=== PATIENT | female | born 1945 | race Caucasian/White ===

== ENCOUNTER 2020-10-06 14:24 | Observation (INO) ==
[2020-10-06 15:12] LABS: INR 1.1; Mean Platelet Volume 9.6 fL (9.4-12.4); Nucleated Red Blood Cells 0.8 /100 WBC (0); Prothrombin Time 12.4 Seconds (9.4-12.1)
[2020-10-06 15:14] LABS: Activated Partial Thrombo Time 22.9 Seconds (26.0-36.0)
[2020-10-06 15:15] LABS: Basophils # 0.1 K/mcL (0.0-0.2); Basophils % 0.8 %; Eosinophils # 0.2 K/mcL (0.0-0.6); Eosinophils % 2.3 %; Hematocrit 17.4 % (35.3-44.9); Immature Granulocytes % 0.3 % (0-4); Lymphocytes # 2.2 K/mcL (0.6-4.6); Lymphocytes % 29.6 %; Mean Corpuscular Hemoglobin 17.2 pg (28.0-33.3); Mean Corpuscular Volume 63.5 fL (83.0-100.0); Monocytes # 0.7 K/mcL (0.0-1.3); Monocytes % 9.6 %; Neutrophils # 4.3 K/mcL (1.6-8.9); Platelet Count 306 K/mcL (140-400); Red Blood Count 2.74 M/mcL (3.82-4.97); Red Cell Distribution Width 18.6 % (11.5-14.5); Segmented Neutrophils % 57.4 %; White Blood Count 7.5 K/mcL (4.3-11.1)
[2020-10-06 15:30] LABS: Hemoglobin 4.7 g/dL (11.5-15.4)
[2020-10-06] MEDS ORDERED: Isovue-370 500 ML BOTTLE IVP ONE (15:38)
[2020-10-06 15:41] LABS: BUN/Creatinine Ratio 22 (6-26); Blood Urea Nitrogen 19 mg/dL (8-23); Calcium 8.9 mg/dL (8.6-10.3); Carbon Dioxide 21 mEq/L (23-29); Chloride 110 mEq/L (98-107); Glucose 98 mg/dL (70-105); Osmolality,Calculated 296 (280-300); Potassium 3.4 mEq/L (3.5-5.1); Sodium 142 mEq/L (136-145); Troponin I < 0.03 ng/mL (< 0.04); eGFR For African Americans > 60 (> 60); eGFR For Non-African Americans > 60 (> 60)
[2020-10-06 16:30] LABS: Anisocytosis 2+ (Not Present); Hypochromasia Present (Not Present)
[2020-10-06 16:31] LABS: Polychromasia 1+ (Not Present); Tear Drop Cells 1+ (Not Present)
[2020-10-06 16:32] LABS: Helmet Cells Present (Not Present); Platelet Estimate Normal (Normal)
[2020-10-06] MEDS ORDERED: 0.9 % Sodium Chloride 250 ML ONE (16:44)
[2020-10-06] MEDS ORDERED: Ondansetron 4 MG/2 ML VIAL IVP PRN (17:13)
[2020-10-06] MEDS ORDERED: Naloxone 0.4 MG/ML INJ IVP PRN (17:13)
[2020-10-06] MEDS ORDERED: Perflutren Lipid Microsphere 1.3 ML in 0.9 % Sodium Chloride 8.7 ML IVP PRN (17:33)
[2020-10-06 17:38] LABS: Bilirubin,Direct 0.1 mg/dL (0.0-0.2); Bilirubin,Indirect 0.2 mg/dL (0.0-1.0); Bilirubin,Total 0.3 mg/dL (0.3-1.0); Lactate Dehydrogenase 143 Units/L (140-271)
[2020-10-06] MEDS: Pantoprazole 40 MG VIAL IVP SCH (18:30)
[2020-10-07 00:47] LABS: Hematocrit 22.1 % (35.3-44.9)
[2020-10-07 00:49] LABS: Hemoglobin 6.4 g/dL (11.5-15.4)
[2020-10-07 03:35] LABS: INR 1.1; Prothrombin Time 12.4 Seconds (9.4-12.1)
[2020-10-07 03:38] LABS: Activated Partial Thrombo Time 22.7 Seconds (26.0-36.0)
[2020-10-07 03:52] LABS: % Iron Saturation 7 % (15-50); Alanine Aminotransferase 5 Units/L (7-52); Albumin 3.2 g/dL (3.5-5.7); Albumin/Globulin Ratio 1.7 (1.1-2.2); Alkaline Phosphatase 67 Units/L (34-104); Aspartate Amino Transferase 10 Units/L (13-39); BUN/Creatinine Ratio 22 (6-26); Bilirubin,Total 0.5 mg/dL (0.3-1.0); Blood Urea Nitrogen 17 mg/dL (8-23); Calcium 8.3 mg/dL (8.6-10.3); Carbon Dioxide 23 mEq/L (23-29); Chloride 114 mEq/L (98-107); Chol/HDL Ratio 3.6 (0-4.9); Cholesterol 146 mg/dL (< 200); Globulin 1.9 g/dL (2.4-3.5); Glucose 93 mg/dL (70-105); HDL Cholesterol 41 mg/dL (40-59); Iron 27 mcg/dL (50-170); LDL Cholesterol,Calculated 89 mg/dL (< 100); Magnesium 1.9 mg/dL (1.6-2.6); Osmolality,Calculated 293 (280-300); Phosphorous 4.1 mg/dL (2.7-4.5); Potassium 4.3 mEq/L (3.5-5.1); Sodium 141 mEq/L (136-145); Total Protein 5.1 g/dL (6.4-8.9); Transferrin 281 mg/dL (203-362); Triglycerides 79 mg/dL (< 150); eGFR For African Americans > 60 (> 60); eGFR For Non-African Americans > 60 (> 60)
[2020-10-07 04:11] LABS: Ferritin < 8 ng/mL (10-120)
[2020-10-07 04:12] LABS: Folate 6.2 ng/mL (3.0-16.0)
[2020-10-07] MEDS: Pantoprazole 40 MG VIAL IVP SCH ×2 (05:54→17:52)
[2020-10-07 05:55] LABS: Red Cell Distribution Width 23.6 % (11.5-14.5)
[2020-10-07 05:56] LABS: Basophils # 0.1 K/mcL (0.0-0.2); Basophils % 0.9 %; Eosinophils # 0.2 K/mcL (0.0-0.6); Eosinophils % 2.9 %; Hematocrit 23.2 % (35.3-44.9); Hemoglobin 6.8 g/dL (11.5-15.4); Immature Granulocytes % 0.3 % (0-4); Lymphocytes # 2.5 K/mcL (0.6-4.6); Mean Corpuscular HGB Conc 29.3 g/dL (31.6-35.5); Mean Corpuscular Hemoglobin 20.7 pg (28.0-33.3); Mean Corpuscular Volume 70.7 fL (83.0-100.0); Mean Platelet Volume 9.9 fL (9.4-12.4); Monocytes # 0.8 K/mcL (0.0-1.3); Monocytes % 11.9 %; Nucleated Red Blood Cells 0.8 /100 WBC (0); Platelet Count 245 K/mcL (140-400); Red Blood Count 3.28 M/mcL (3.82-4.97); White Blood Count 6.6 K/mcL (4.3-11.1)
[2020-10-07 06:23] LABS: Anisocytosis 3+ (Not Present); Burr Cells 1+ (Not Present); Hypochromasia Present (Not Present); Microcytosis Present (Not Present); Platelet Estimate Normal (Normal); Poikilocytosis 2+ (Not Present); Schistocytes 1+ (Not Present); Target Cells 1+ (Not Present)
[2020-10-07 08:19] LABS: Bilirubin,Urine Negative (Negative); Blood,Urine Negative (Negative); Clarity,Urine Clear (Clear); Color,Urine Light-Yellow (Yellow); Glucose,Urine (UA) Normal (Normal); Ketones,Urine Negative (Negative); Leukocyte Esterase,Urine Negative (Negative); Nitrite,Urine Negative (Negative); PH,Urine 5.5 pH Units (5.0-8.0); Protein,Urine Negative (Neg-Trace); Specific Gravity,Urine > 1.030 (1.010-1.025); Urobilinogen,Urine Normal (Normal)
[2020-10-07] MEDS ORDERED: Cyanocobalamin (B-12) 1,000 MCG/ML VIAL SQ ONE (08:20)
[2020-10-07] MEDS ORDERED: Lidocaine -MPF 2% 5 ML VIAL INFILT ONE (11:01)
[2020-10-07] MEDS ORDERED: Loratadine 10 MG TABLET PO PRN (15:57)
[2020-10-07] MEDS ORDERED: Fluticasone Propionate Nasal 50 MCG/SPRAY BOTTLE NS PRN (15:57)
[2020-10-07] MEDS ORDERED: tiZANidine 4 MG TABLET PO PRN (15:57)
[2020-10-07] MEDS ORDERED: 0.9 % Sodium Chloride 250 ML IVC SCH (16:45)
[2020-10-07] MEDS: Sucralfate 1 GM TABLET PO SCH (17:53)
[2020-10-07] MEDS: Gabapentin 300 MG CAPSULE PO SCH (19:47)
[2020-10-07] MEDS: Acetaminophen 325 MG TABLET PO PRN (19:47)
[2020-10-07] MEDS ORDERED: traZODone 50 MG TABLET PO SCH (21:00)
[2020-10-07] MEDS ORDERED: Magnesium Oxide 400 MG TABLET PO SCH (21:00)
[2020-10-08 02:55] LABS: Basophils # 0.1 K/mcL (0.0-0.2); Basophils % 0.9 %; Eosinophils # 0.3 K/mcL (0.0-0.6); Hematocrit 26.3 % (35.3-44.9); Hemoglobin 7.7 g/dL (11.5-15.4); Immature Granulocytes % 0.3 % (0-4); Lymphocytes % 30.4 %; Mean Corpuscular HGB Conc 29.3 g/dL (31.6-35.5); Mean Corpuscular Hemoglobin 21.2 pg (28.0-33.3); Mean Corpuscular Volume 72.3 fL (83.0-100.0); Mean Platelet Volume 9.7 fL (9.4-12.4); Monocytes % 9.7 %; Nucleated Red Blood Cells 0.3 /100 WBC (0); Platelet Count 220 K/mcL (140-400); Red Blood Count 3.64 M/mcL (3.82-4.97); Red Cell Distribution Width 24.1 % (11.5-14.5); Segmented Neutrophils % 55.7 %; White Blood Count 9.8 K/mcL (4.3-11.1)
[2020-10-08 03:00] LABS: Neutrophils # 5.5 K/mcL (1.6-8.9)
[2020-10-08 03:15] LABS: BUN/Creatinine Ratio 21 (6-26); Blood Urea Nitrogen 17 mg/dL (8-23); Calcium 8.2 mg/dL (8.6-10.3); Carbon Dioxide 20 mEq/L (23-29); Chloride 111 mEq/L (98-107); Glucose 89 mg/dL (70-105); Osmolality,Calculated 287 (280-300); Sodium 138 mEq/L (136-145); eGFR For African Americans > 60 (> 60); eGFR For Non-African Americans > 60 (> 60)
[2020-10-08 03:24] LABS: Anisocytosis 1+ (Not Present); Hypochromasia Present (Not Present); Microcytosis Present (Not Present); Poikilocytosis 2+ (Not Present); Polychromasia 1+ (Not Present)
[2020-10-08] MEDS: Pantoprazole 40 MG VIAL IVP SCH (05:23)
[2020-10-08] MEDS: Acetaminophen 325 MG TABLET PO PRN (07:53)
[2020-10-08] MEDS: Sucralfate 1 GM TABLET PO SCH (07:54)
[2020-10-08] MEDS: Gabapentin 300 MG CAPSULE PO SCH (07:54)
[2020-10-08 09:09] LABS: Hematocrit 28.9 % (35.3-44.9); Hemoglobin 8.3 g/dL (11.5-15.4)
[2020-10-08 11:29] VITALS: BP 119/61
== END 2020-10-08 13:52 | disposition home or self-care (01) | DRG 812 ==
LOC: 2NNU 14:24 → EMEROOARM 14:24 → SUATTDRO 16:58 → 2NNU 17:47 → SUATTDRO 19:57
PROVIDERS: ADMIT Internal Medicine; ATTEND Student in an Organized Health Care Education/Training Program
PROC: ENDOEBX (2020-10-07 10:25)

== ENCOUNTER 2021-09-03 07:41 | Inpatient (IN) ==
[2021-09-03] MEDS ORDERED: Isovue-370 500 ML BOTTLE IVP ONE (07:47)
[2021-09-03 08:00] LABS: Hematocrit 33.6 % (35.3-44.9); Mean Corpuscular HGB Conc 29.8 g/dL (31.6-35.5); Mean Corpuscular Hemoglobin 24.6 pg (28.0-33.3); Mean Corpuscular Volume 82.6 fL (83.0-100.0); Mean Platelet Volume 9.2 fL (9.4-12.4); Platelet Count 239 K/mcL (140-400); Red Blood Count 4.07 M/mcL (3.82-4.97); Red Cell Distribution Width 15.4 % (11.5-14.5); White Blood Count 8.7 K/mcL (4.3-11.1)
[2021-09-03 08:10] LABS: Prothrombin Time 11.2 Seconds (9.4-12.1)
[2021-09-03 08:13] LABS: Activated Partial Thrombo Time 28.8 Seconds (26.0-36.0)
[2021-09-03 08:25] LABS: Troponin I 0.04 ng/mL (< 0.04)
[2021-09-03 08:54] LABS: BUN/Creatinine Ratio 16 (6-26); Blood Urea Nitrogen 12 mg/dL (8-23); Calcium 8.6 mg/dL (8.6-10.3); Carbon Dioxide 26 mEq/L (23-29); Chloride 113 mEq/L (98-107); Glucose 100 mg/dL (70-105); Osmolality,Calculated 284 (280-300); Potassium 3.8 mEq/L (3.5-5.1); Sodium 137 mEq/L (136-145); eGFR For African Americans > 60 (> 60); eGFR For Non-African Americans > 60 (> 60)
[2021-09-03] MEDS ORDERED: Aspirin 325 MG TABLET PO ONE (09:26)
[2021-09-03 09:32] LABS: Bilirubin,Urine Negative (Negative); Blood,Urine Negative (Negative); Clarity,Urine Clear (Clear); Color,Urine Colorless (Yellow); Glucose,Urine (UA) Normal (Normal); Ketones,Urine Negative (Negative); Leukocyte Esterase,Urine Negative (Negative); Nitrite,Urine Negative (Negative); Protein,Urine Negative (Neg-Trace); Specific Gravity,Urine 1.026 (1.010-1.025); Urobilinogen,Urine Normal (Normal)
[2021-09-03] MEDS ORDERED: Naloxone 0.4 MG/ML INJ IVP PRN (09:43)
[2021-09-03 10:39] LABS: Influenza A PCR Negative (Negative); Influenza B PCR Negative (Negative); Resp. Syncytial Virus PCR Negative (Negative); SARS-CoV-2 by PCR (In House) Negative (Negative)
[2021-09-03] MEDS ORDERED: Perflutren Lipid Microsphere 1.3 ML in 0.9 % Sodium Chloride 8.7 ML IVP PRN (12:53)
[2021-09-03] MEDS ORDERED: Fluticasone Propionate Nasal 50 MCG/SPRAY BOTTLE NS PRN (14:24)
[2021-09-03] MEDS ORDERED: Loratadine 10 MG TABLET PO PRN (14:24)
[2021-09-03] MEDS: Gabapentin 300 MG CAPSULE PO SCH ×2 (15:58→21:25)
[2021-09-03] MEDS: *HR* Heparin 5,000 UNIT/ML VIAL SQ SCH ×2 (16:07→23:23)
[2021-09-03] MEDS: traZODone 50 MG TABLET PO SCH (21:25)
[2021-09-03] MEDS: Sucralfate 1 GM TABLET PO SCH (21:25)
[2021-09-04 02:48] LABS: Basophils # 0.1 K/mcL (0.0-0.2); Basophils % 0.7 %; Eosinophils # 0.4 K/mcL (0.0-0.6); Eosinophils % 5.1 %; Hematocrit 31.8 % (35.3-44.9); Hemoglobin 9.8 g/dL (11.5-15.4); Immature Granulocytes % 0.3 % (0-4); Lymphocytes # 2.8 K/mcL (0.6-4.6); Lymphocytes % 39.1 %; Mean Corpuscular HGB Conc 30.8 g/dL (31.6-35.5); Mean Corpuscular Hemoglobin 25.3 pg (28.0-33.3); Mean Corpuscular Volume 82.2 fL (83.0-100.0); Mean Platelet Volume 9.8 fL (9.4-12.4); Monocytes # 0.6 K/mcL (0.0-1.3); Monocytes % 8.8 %; Neutrophils # 3.3 K/mcL (1.6-8.9); Platelet Count 248 K/mcL (140-400); Red Blood Count 3.87 M/mcL (3.82-4.97); Red Cell Distribution Width 15.5 % (11.5-14.5); White Blood Count 7.2 K/mcL (4.3-11.1)
[2021-09-04 03:07] LABS: BUN/Creatinine Ratio 18 (6-26); Blood Urea Nitrogen 16 mg/dL (8-23); Calcium 8.3 mg/dL (8.6-10.3); Carbon Dioxide 26 mEq/L (23-29); Chloride 107 mEq/L (98-107); Glucose 101 mg/dL (70-105); Osmolality,Calculated 287 (280-300); Potassium 3.9 mEq/L (3.5-5.1); Sodium 138 mEq/L (136-145); eGFR For African Americans > 60 (> 60); eGFR For Non-African Americans > 60 (> 60)
[2021-09-04] MEDS: Sucralfate 1 GM TABLET PO SCH ×2 (09:51→20:52)
[2021-09-04] MEDS: Gabapentin 300 MG CAPSULE PO SCH ×3 (09:52→20:52)
[2021-09-04] MEDS: Aspirin Enteric Coated 81 MG Tablet PO SCH (09:52)
[2021-09-04] MEDS: *HR* Heparin 5,000 UNIT/ML VIAL SQ SCH ×2 (09:52→18:28)
[2021-09-04] MEDS: traZODone 50 MG TABLET PO SCH (20:52)
[2021-09-05] MEDS: *HR* Heparin 5,000 UNIT/ML VIAL SQ SCH ×3 (00:32→16:44)
[2021-09-05 03:34] LABS: White Blood Count 7.8 K/mcL (4.3-11.1)
[2021-09-05 03:35] LABS: Basophils # 0.1 K/mcL (0.0-0.2); Eosinophils # 0.3 K/mcL (0.0-0.6); Eosinophils % 4.3 %; Hematocrit 33.2 % (35.3-44.9); Immature Granulocytes % 0.3 % (0-4); Lymphocytes % 38.3 %; Mean Corpuscular HGB Conc 30.1 g/dL (31.6-35.5); Mean Corpuscular Hemoglobin 24.4 pg (28.0-33.3); Mean Corpuscular Volume 81.2 fL (83.0-100.0); Monocytes # 0.7 K/mcL (0.0-1.3); Monocytes % 8.4 %; Neutrophils # 3.7 K/mcL (1.6-8.9); Platelet Count 234 K/mcL (140-400); Red Blood Count 4.09 M/mcL (3.82-4.97); Red Cell Distribution Width 15.3 % (11.5-14.5); Segmented Neutrophils % 47.7 %
[2021-09-05 03:46] LABS: BUN/Creatinine Ratio 19 (6-26); Blood Urea Nitrogen 14 mg/dL (8-23); Calcium 8.3 mg/dL (8.6-10.3); Carbon Dioxide 22 mEq/L (23-29); Chloride 107 mEq/L (98-107); Glucose 98 mg/dL (70-105); Osmolality,Calculated 282 (280-300); Phosphorous 3.5 mg/dL (2.7-4.5); Potassium 4.1 mEq/L (3.5-5.1); Sodium 136 mEq/L (136-145); eGFR For African Americans > 60 (> 60); eGFR For Non-African Americans > 60 (> 60)
[2021-09-05] MEDS: Aspirin Enteric Coated 81 MG Tablet PO SCH (08:58)
[2021-09-05] MEDS: Sucralfate 1 GM TABLET PO SCH ×2 (08:58→20:17)
[2021-09-05] MEDS: Gabapentin 300 MG CAPSULE PO SCH ×3 (08:59→20:17)
[2021-09-05] MEDS: traZODone 50 MG TABLET PO SCH (20:17)
[2021-09-06] MEDS: *HR* Heparin 5,000 UNIT/ML VIAL SQ SCH ×4 (00:24→23:41)
[2021-09-06 01:42] LABS: Basophils # 0.1 K/mcL (0.0-0.2); Basophils % 0.7 %; Eosinophils # 0.3 K/mcL (0.0-0.6); Eosinophils % 3.2 %; Hematocrit 34.7 % (35.3-44.9); Hemoglobin 10.2 g/dL (11.5-15.4); Immature Granulocytes % 0.3 % (0-4); Lymphocytes # 3.6 K/mcL (0.6-4.6); Mean Corpuscular HGB Conc 29.4 g/dL (31.6-35.5); Mean Corpuscular Hemoglobin 24.5 pg (28.0-33.3); Mean Corpuscular Volume 83.2 fL (83.0-100.0); Mean Platelet Volume 9.3 fL (9.4-12.4); Monocytes # 0.7 K/mcL (0.0-1.3); Monocytes % 7.5 %; Platelet Count 238 K/mcL (140-400); Red Blood Count 4.17 M/mcL (3.82-4.97); Red Cell Distribution Width 15.5 % (11.5-14.5); Segmented Neutrophils % 51.3 %; White Blood Count 9.7 K/mcL (4.3-11.1)
[2021-09-06 02:04] LABS: BUN/Creatinine Ratio 23 (6-26); Blood Urea Nitrogen 22 mg/dL (8-23); Calcium 8.5 mg/dL (8.6-10.3); Carbon Dioxide 21 mEq/L (23-29); Chloride 106 mEq/L (98-107); Glucose 100 mg/dL (70-105); Osmolality,Calculated 287 (280-300); Potassium 4.1 mEq/L (3.5-5.1); Sodium 137 mEq/L (136-145); eGFR For African Americans > 60 (> 60); eGFR For Non-African Americans 57 (> 60)
[2021-09-06] MEDS: Sucralfate 1 GM TABLET PO SCH ×2 (07:44→21:14)
[2021-09-06] MEDS: Aspirin Enteric Coated 81 MG Tablet PO SCH (07:44)
[2021-09-06] MEDS: Gabapentin 300 MG CAPSULE PO SCH ×3 (08:15→21:14)
[2021-09-06] MEDS: traZODone 50 MG TABLET PO SCH (21:14)
[2021-09-07] MEDS: Sucralfate 1 GM TABLET PO SCH ×2 (07:29→20:36)
[2021-09-07] MEDS: Gabapentin 300 MG CAPSULE PO SCH ×3 (07:29→20:36)
[2021-09-07] MEDS: Aspirin Enteric Coated 81 MG Tablet PO SCH (07:29)
[2021-09-07] MEDS: *HR* Heparin 5,000 UNIT/ML VIAL SQ SCH ×2 (07:29→17:04)
[2021-09-07] MEDS: Ibuprofen 400 MG TABLET PO PRN (13:18)
[2021-09-07] MEDS: traZODone 50 MG TABLET PO SCH (20:36)
[2021-09-08] MEDS: *HR* Heparin 5,000 UNIT/ML VIAL SQ SCH ×3 (00:18→16:58)
[2021-09-08] MEDS: Cholecalciferol (D-3) 1,000 UNIT (25MCG) TABLET PO SCH (09:20)
[2021-09-08] MEDS: Cyanocobalamin (B-12) 1,000 MCG TABLET PO SCH (09:21)
[2021-09-08] MEDS: Sucralfate 1 GM TABLET PO SCH ×2 (09:21→16:58)
[2021-09-08] MEDS: Aspirin Enteric Coated 81 MG Tablet PO SCH (09:22)
[2021-09-08] MEDS: Gabapentin 300 MG CAPSULE PO SCH ×4 (09:23→21:55)
[2021-09-08] MEDS: Ibuprofen 400 MG TABLET PO PRN (09:29)
[2021-09-08] MEDS: traZODone 50 MG TABLET PO SCH (21:54)
[2021-09-09] MEDS: *HR* Heparin 5,000 UNIT/ML VIAL SQ SCH ×3 (01:44→16:39)
[2021-09-09] MEDS: Cholecalciferol (D-3) 1,000 UNIT (25MCG) TABLET PO SCH (09:15)
[2021-09-09] MEDS: Cyanocobalamin (B-12) 1,000 MCG TABLET PO SCH (09:16)
[2021-09-09] MEDS: Aspirin Enteric Coated 81 MG Tablet PO SCH (09:17)
[2021-09-09] MEDS: Sucralfate 1 GM TABLET PO SCH ×2 (09:23→16:39)
[2021-09-09] MEDS: Gabapentin 300 MG CAPSULE PO SCH ×2 (09:24→14:25)
[2021-09-09] MEDS: traZODone 50 MG TABLET PO SCH (21:03)
[2021-09-10] MEDS: *HR* Heparin 5,000 UNIT/ML VIAL SQ SCH ×3 (00:42→17:58)
[2021-09-10] MEDS: Sucralfate 1 GM TABLET PO SCH ×2 (06:40→17:58)
[2021-09-10] MEDS: Cholecalciferol (D-3) 1,000 UNIT (25MCG) TABLET PO SCH (09:01)
[2021-09-10] MEDS: Aspirin Enteric Coated 81 MG Tablet PO SCH (09:02)
[2021-09-10] MEDS: Cyanocobalamin (B-12) 1,000 MCG TABLET PO SCH (09:02)
[2021-09-10] MEDS: Ibuprofen 400 MG TABLET PO PRN (11:50)
[2021-09-10] MEDS: traZODone 50 MG TABLET PO SCH (21:04)
[2021-09-11] MEDS: *HR* Heparin 5,000 UNIT/ML VIAL SQ SCH ×4 (02:49→23:31)
[2021-09-11] MEDS: Ibuprofen 400 MG TABLET PO PRN (04:28)
[2021-09-11] MEDS: Cyanocobalamin (B-12) 1,000 MCG TABLET PO SCH (08:45)
[2021-09-11] MEDS: Cholecalciferol (D-3) 1,000 UNIT (25MCG) TABLET PO SCH (08:45)
[2021-09-11] MEDS: Aspirin Enteric Coated 81 MG Tablet PO SCH (08:45)
[2021-09-11] MEDS: Sucralfate 1 GM TABLET PO SCH ×2 (08:46→17:28)
[2021-09-11] MEDS: traZODone 50 MG TABLET PO SCH (19:48)
[2021-09-12] MEDS: Cyanocobalamin (B-12) 1,000 MCG TABLET PO SCH (09:33)
[2021-09-12] MEDS: *HR* Heparin 5,000 UNIT/ML VIAL SQ SCH ×2 (09:33→16:49)
[2021-09-12] MEDS: Aspirin Enteric Coated 81 MG Tablet PO SCH (09:34)
[2021-09-12] MEDS: Sucralfate 1 GM TABLET PO SCH ×2 (09:36→16:49)
[2021-09-12] MEDS: Cholecalciferol (D-3) 1,000 UNIT (25MCG) TABLET PO SCH (09:36)
[2021-09-12] MEDS ORDERED: Ibuprofen 400 MG TABLET PO PRN (12:42)
[2021-09-12] MEDS: traZODone 50 MG TABLET PO SCH (21:09)
[2021-09-13] MEDS: *HR* Heparin 5,000 UNIT/ML VIAL SQ SCH ×3 (00:40→16:23)
[2021-09-13] MEDS: Aspirin Enteric Coated 81 MG Tablet PO SCH (08:53)
[2021-09-13] MEDS: Sucralfate 1 GM TABLET PO SCH ×2 (08:53→16:22)
[2021-09-13] MEDS: Cholecalciferol (D-3) 1,000 UNIT (25MCG) TABLET PO SCH (08:53)
[2021-09-13] MEDS: Cyanocobalamin (B-12) 1,000 MCG TABLET PO SCH (08:53)
[2021-09-13] MEDS: traZODone 50 MG TABLET PO SCH (22:00)
[2021-09-14] MEDS: *HR* Heparin 5,000 UNIT/ML VIAL SQ SCH ×3 (00:23→16:35)
[2021-09-14] MEDS: Cyanocobalamin (B-12) 1,000 MCG TABLET PO SCH (09:18)
[2021-09-14] MEDS: Aspirin Enteric Coated 81 MG Tablet PO SCH (09:18)
[2021-09-14] MEDS: Cholecalciferol (D-3) 1,000 UNIT (25MCG) TABLET PO SCH (09:19)
[2021-09-14] MEDS: Sucralfate 1 GM TABLET PO SCH ×2 (09:22→16:41)
[2021-09-14 10:37] VITALS: BP 119/82; PULSE 87; TEMP 98.5; O2SAT 93
== END 2021-09-14 18:33 | DRG 65 ==
LOC: 2ANU 07:41 → EMEROOARM 07:41 → 2ANU 11:27 → SUATTDRO 11:28
PROVIDERS: ADMIT Internal Medicine; ATTEND Family Medicine

== ENCOUNTER 2021-11-16 12:08 | Observation (INO) ==
[2021-11-16] MEDS ORDERED: Isovue-370 500 ML BOTTLE IVP ONE (12:54)
[2021-11-16] MEDS ORDERED: 0.9 % Sodium Chloride 500 ML IV ONE (13:24)
[2021-11-16 13:46] LABS: Basophils # 0.1 K/mcL (0.0-0.2); Basophils % 0.7 %; Eosinophils % 0.3 %; Hematocrit 37.4 % (35.3-44.9); Hemoglobin 11.8 g/dL (11.5-15.4); Immature Granulocytes % 0.4 % (0-4); Lymphocytes # 2.4 K/mcL (0.6-4.6); Lymphocytes % 19.4 %; Mean Corpuscular HGB Conc 31.6 g/dL (31.6-35.5); Mean Corpuscular Hemoglobin 25.2 pg (28.0-33.3); Mean Corpuscular Volume 79.7 fL (83.0-100.0); Mean Platelet Volume 8.9 fL (9.4-12.4); Monocytes # 0.8 K/mcL (0.0-1.3); Monocytes % 6.4 %; Platelet Count 275 K/mcL (140-400); Red Blood Count 4.69 M/mcL (3.82-4.97); Red Cell Distribution Width 17.8 % (11.5-14.5); Segmented Neutrophils % 72.8 %; White Blood Count 12.4 K/mcL (4.3-11.1)
[2021-11-16 14:03] LABS: INR 1.2; Prothrombin Time 12.9 Seconds (9.4-12.1)
[2021-11-16 14:06] LABS: Activated Partial Thrombo Time 26.1 Seconds (26.0-36.0)
[2021-11-16 14:09] LABS: Alanine Aminotransferase 20 Units/L (7-52); Albumin/Globulin Ratio 1.5 (1.1-2.2); Alkaline Phosphatase 121 Units/L (34-104); Aspartate Amino Transferase 38 Units/L (13-39); BUN/Creatinine Ratio 26 (6-26); Bilirubin,Direct 0.1 mg/dL (0.0-0.2); Bilirubin,Indirect 0.3 mg/dL (0.0-1.0); Bilirubin,Total 0.4 mg/dL (0.3-1.0); Blood Urea Nitrogen 20 mg/dL (8-23); Calcium 9.3 mg/dL (8.6-10.3); Carbon Dioxide 24 mEq/L (23-29); Chloride 103 mEq/L (98-107); Globulin 2.6 g/dL (2.4-3.5); Glucose 97 mg/dL (70-105); Lipase 26 Units/L (11-82); Osmolality,Calculated 291 (280-300); Potassium 3.3 mEq/L (3.5-5.1); Sodium 139 mEq/L (136-145); Total Protein 6.6 g/dL (6.4-8.9); eGFR For African Americans > 60 (> 60); eGFR For Non-African Americans > 60 (> 60)
[2021-11-16 14:23] LABS: Bacteria,Urine Few per hpf (None-Few); Bilirubin,Urine Negative (Negative); Blood,Urine Negative (Negative); Clarity,Urine Turbid (Clear); Color,Urine Yellow (Yellow); Glucose,Urine (UA) Normal (Normal); Ketones,Urine 40 mg/dL (Negative); Leukocyte Esterase,Urine Negative (Negative); Mucus,Urine Few per lpf (None-Few); Nitrite,Urine Negative (Negative); PH,Urine 5.5 pH Units (5.0-8.0); Protein,Urine 30 mg/dL (Neg-Trace); Specific Gravity,Urine > 1.030 (1.010-1.025); Squamous Epithelial Cell,Urine Few per hpf (None-Few); Urobilinogen,Urine Normal (Normal); WBC,Urine 0-3 per hpf (0-3)
[2021-11-16 15:00] LABS: Troponin I 0.11 ng/mL (< 0.04)
[2021-11-16] MEDS ORDERED: Naloxone 0.4 MG/ML INJ IVP PRN (15:51)
[2021-11-16] MEDS ORDERED: Melatonin 3 MG TABLET PO PRN (15:51)
[2021-11-16] MEDS ORDERED: Ondansetron 4 MG/2 ML VIAL IVP PRN (15:51)
[2021-11-16 16:21] LABS: Influenza A PCR Negative (Negative); Influenza B PCR Negative (Negative); Resp. Syncytial Virus PCR Negative (Negative)
[2021-11-16 16:31] LABS: SARS-CoV-2 by PCR (In House) Negative (Negative)
[2021-11-16] MEDS ORDERED: *HR* Heparin 5,000 UNIT/ML VIAL IVP PRN ×2 (16:37)
[2021-11-16] MEDS ORDERED: *HR* Heparin 5,000 UNIT/ML VIAL IVP ONE (16:37)
[2021-11-16 17:08] LABS: Hematocrit 36.1 % (35.3-44.9); Hemoglobin 11.6 g/dL (11.5-15.4); Mean Corpuscular HGB Conc 32.1 g/dL (31.6-35.5); Mean Corpuscular Hemoglobin 25.8 pg (28.0-33.3); Mean Corpuscular Volume 80.4 fL (83.0-100.0); Mean Platelet Volume 9.2 fL (9.4-12.4); Platelet Count 272 K/mcL (140-400); Red Blood Count 4.49 M/mcL (3.82-4.97); Red Cell Distribution Width 17.6 % (11.5-14.5); White Blood Count 11.4 K/mcL (4.3-11.1)
[2021-11-16 17:17] LABS: INR 1.1; Prothrombin Time 12.8 Seconds (9.4-12.1)
[2021-11-16 17:20] LABS: Heparin anti-factor XA UFH < 0.04 IU/mL (0.30-0.70)
[2021-11-16] MEDS ORDERED: Loratadine 10 MG TABLET PO PRN (17:28)
[2021-11-16] MEDS ORDERED: Fluticasone Propionate Nasal 50 MCG/SPRAY BOTTLE NS PRN (17:28)
[2021-11-16] MEDS: Heparin 25,000UNIT/250ML 1/2NS 25,000 UNIT/250 ML IV.SOLN IVC SCH (18:06)
[2021-11-16] MEDS: 0.9 % Sodium Chloride 1,000 ML IVC SCH (18:07)
[2021-11-16] MEDS: Gabapentin 300 MG CAPSULE PO SCH (20:09)
[2021-11-16] MEDS: Magnesium Oxide 400 MG TABLET PO SCH (20:10)
[2021-11-16] MEDS: Famotidine 20 MG TABLET PO SCH (20:10)
[2021-11-16] MEDS: traZODone 50 MG TABLET PO SCH (20:11)
[2021-11-17 00:27] LABS: Basophils # 0.1 K/mcL (0.0-0.2); Basophils % 0.7 %; Eosinophils # 0.2 K/mcL (0.0-0.6); Eosinophils % 1.4 %; Hematocrit 34.3 % (35.3-44.9); Hemoglobin 10.8 g/dL (11.5-15.4); Immature Granulocytes % 0.4 % (0-4); Lymphocytes # 3.8 K/mcL (0.6-4.6); Mean Corpuscular HGB Conc 31.5 g/dL (31.6-35.5); Mean Corpuscular Hemoglobin 25.3 pg (28.0-33.3); Mean Corpuscular Volume 80.3 fL (83.0-100.0); Mean Platelet Volume 8.7 fL (9.4-12.4); Monocytes # 0.9 K/mcL (0.0-1.3); Monocytes % 8.1 %; Neutrophils # 6.3 K/mcL (1.6-8.9); Platelet Count 239 K/mcL (140-400); Red Blood Count 4.27 M/mcL (3.82-4.97); Red Cell Distribution Width 17.8 % (11.5-14.5); Segmented Neutrophils % 55.4 %; White Blood Count 11.3 K/mcL (4.3-11.1)
[2021-11-17 00:44] LABS: BUN/Creatinine Ratio 25 (6-26); Blood Urea Nitrogen 17 mg/dL (8-23); Calcium 8.5 mg/dL (8.6-10.3); Carbon Dioxide 22 mEq/L (23-29); Chloride 108 mEq/L (98-107); Glucose 85 mg/dL (70-105); Magnesium 1.7 mg/dL (1.6-2.6); Osmolality,Calculated 287 (280-300); Potassium 3.1 mEq/L (3.5-5.1); Sodium 138 mEq/L (136-145); eGFR For African Americans > 60 (> 60); eGFR For Non-African Americans > 60 (> 60)
[2021-11-17] MEDS: 0.9 % Sodium Chloride 1,000 ML IVC SCH ×2 (06:40→17:14)
[2021-11-17] MEDS: Gabapentin 300 MG CAPSULE PO SCH ×3 (08:29→20:08)
[2021-11-17] MEDS: Cyanocobalamin (B-12) 1,000 MCG TABLET PO SCH (08:30)
[2021-11-17] MEDS: Aspirin Enteric Coated 81 MG Tablet PO SCH (08:30)
[2021-11-17] MEDS: Magnesium Oxide 400 MG TABLET PO SCH ×2 (08:30→20:07)
[2021-11-17] MEDS ORDERED: tiZANidine 4 MG TABLET PO PRN (11:19)
[2021-11-17] MEDS: Heparin 25,000UNIT/250ML 1/2NS 25,000 UNIT/250 ML IV.SOLN IVC SCH (17:11)
[2021-11-17] MEDS: Sucralfate 1 GM TABLET PO SCH (20:07)
[2021-11-17] MEDS: Famotidine 20 MG TABLET PO SCH (20:07)
[2021-11-17] MEDS: traZODone 50 MG TABLET PO SCH (20:07)
[2021-11-18] MEDS: 0.9 % Sodium Chloride 1,000 ML IVC SCH (06:36)
[2021-11-18 06:57] LABS: Basophils # 0.1 K/mcL (0.0-0.2); Basophils % 0.8 %; Eosinophils # 0.7 K/mcL (0.0-0.6); Eosinophils % 6.3 %; Hematocrit 33.7 % (35.3-44.9); Hemoglobin 10.7 g/dL (11.5-15.4); Immature Granulocytes % 0.5 % (0-4); Lymphocytes # 3.5 K/mcL (0.6-4.6); Lymphocytes % 32.4 %; Mean Corpuscular HGB Conc 31.8 g/dL (31.6-35.5); Mean Corpuscular Hemoglobin 25.8 pg (28.0-33.3); Mean Corpuscular Volume 81.2 fL (83.0-100.0); Mean Platelet Volume 9.3 fL (9.4-12.4); Monocytes % 9.6 %; Neutrophils # 5.4 K/mcL (1.6-8.9); Platelet Count 241 K/mcL (140-400); Red Blood Count 4.15 M/mcL (3.82-4.97); Red Cell Distribution Width 18.3 % (11.5-14.5); Segmented Neutrophils % 50.4 %; White Blood Count 10.7 K/mcL (4.3-11.1)
[2021-11-18] MEDS: Cyanocobalamin (B-12) 1,000 MCG TABLET PO SCH (07:45)
[2021-11-18] MEDS: Sucralfate 1 GM TABLET PO SCH ×2 (07:45→19:37)
[2021-11-18] MEDS: Magnesium Oxide 400 MG TABLET PO SCH ×2 (07:45→19:37)
[2021-11-18] MEDS: Cholecalciferol (D-3) 1,000 UNIT (25MCG) TABLET PO SCH (07:45)
[2021-11-18] MEDS: Gabapentin 300 MG CAPSULE PO SCH ×3 (07:46→19:37)
[2021-11-18] MEDS: Aspirin Enteric Coated 81 MG Tablet PO SCH (07:46)
[2021-11-18] MEDS: carvediloL 6.25 MG TABLET PO SCH ×2 (07:53→15:46)
[2021-11-18 08:08] LABS: BUN/Creatinine Ratio 20 (6-26); Blood Urea Nitrogen 15 mg/dL (8-23); Calcium 8.5 mg/dL (8.6-10.3); Carbon Dioxide 26 mEq/L (23-29); Chloride 110 mEq/L (98-107); Glucose 102 mg/dL (70-105); Magnesium 1.9 mg/dL (1.6-2.6); Osmolality,Calculated 291 (280-300); Potassium 3.9 mEq/L (3.5-5.1); Sodium 140 mEq/L (136-145); eGFR For African Americans > 60 (> 60); eGFR For Non-African Americans > 60 (> 60)
[2021-11-18] MEDS: cefTRIAXone 1,000 MG in 0.9 % Sodium Chloride 10 ML IVP SCH (15:46)
[2021-11-18] MEDS: Famotidine 20 MG TABLET PO SCH (19:36)
[2021-11-18] MEDS: traZODone 50 MG TABLET PO SCH (19:36)
[2021-11-19 01:10] LABS: Basophils # 0.1 K/mcL (0.0-0.2); Basophils % 0.8 %; Eosinophils # 0.8 K/mcL (0.0-0.6); Eosinophils % 6.4 %; Hematocrit 34.1 % (35.3-44.9); Immature Granulocytes % 0.5 % (0-4); Lymphocytes # 3.4 K/mcL (0.6-4.6); Lymphocytes % 28.8 %; Mean Corpuscular HGB Conc 32.3 g/dL (31.6-35.5); Mean Corpuscular Hemoglobin 26.1 pg (28.0-33.3); Mean Platelet Volume 9.2 fL (9.4-12.4); Monocytes % 8.6 %; Neutrophils # 6.6 K/mcL (1.6-8.9); Platelet Count 230 K/mcL (140-400); Red Blood Count 4.21 M/mcL (3.82-4.97); Red Cell Distribution Width 18.2 % (11.5-14.5); Segmented Neutrophils % 54.9 %
[2021-11-19 01:30] LABS: BUN/Creatinine Ratio 22 (6-26); Blood Urea Nitrogen 16 mg/dL (8-23); Calcium 8.7 mg/dL (8.6-10.3); Carbon Dioxide 24 mEq/L (23-29); Chloride 110 mEq/L (98-107); Glucose 110 mg/dL (70-105); Magnesium 1.7 mg/dL (1.6-2.6); Osmolality,Calculated 290 (280-300); Sodium 139 mEq/L (136-145); eGFR For African Americans > 60 (> 60); eGFR For Non-African Americans > 60 (> 60)
[2021-11-19] MEDS ORDERED: *HR* Enoxaparin 40 MG/0.4 ML SYRINGE SQ SCH (06:00)
[2021-11-19] MEDS: Heparin 25,000UNIT/250ML 1/2NS 25,000 UNIT/250 ML IV.SOLN IVC SCH (07:22)
[2021-11-19] MEDS: carvediloL 6.25 MG TABLET PO SCH ×2 (07:31→18:13)
[2021-11-19] MEDS: Cyanocobalamin (B-12) 1,000 MCG TABLET PO SCH (07:32)
[2021-11-19] MEDS: Aspirin Enteric Coated 81 MG Tablet PO SCH (07:32)
[2021-11-19] MEDS: Magnesium Oxide 400 MG TABLET PO SCH (07:32)
[2021-11-19] MEDS: Cholecalciferol (D-3) 1,000 UNIT (25MCG) TABLET PO SCH (07:32)
[2021-11-19] MEDS: Gabapentin 300 MG CAPSULE PO SCH ×2 (07:32→13:21)
[2021-11-19] MEDS: Sucralfate 1 GM TABLET PO SCH (07:32)
[2021-11-19 10:45] LABS: Adenovirus F 40/41 PCR Not detected (Not detect); Astrovirus PCR Not detected (Not detect); C.difficile Toxin A/B Gene PCR Not detected (Not detect); Campylobacter by PCR Not detected (Not detect); Cryptosporidium by PCR Not detected (Not detect); Cyclospora cayetanensis PCR Not detected (Not detect); Entamoeba histolytica PCR Not detected (Not detect); Enteroaggregative E.coli(EAEC) Not detected (Not detect); Enteropathogenic E.coli(EPEC) Not detected (Not detect); Enterotoxigenic E.coli (ETEC) Not detected (Not detect); Giardia lamblia PCR Not detected (Not detect); Norovirus GI/GII PCR Not detected (Not detect); Plesiomonas shigelloides PCR Not detected (Not detect); Rotavirus A PCR Not detected (Not detect); Salmonella PCR Not detected (Not detect); Sapovirus PCR Not detected (Not detect); Shig/EnteroinvasiveE coli EIEC Not detected (Not detect); Shigalike tox-prod E coli STEC Not detected (Not detect); Vibrio PCR Not detected (Not detect); Vibrio cholerae PCR Not detected (Not detect); Yersinia enterocolitica PCR Not detected (Not detect)
[2021-11-19] MEDS: cefTRIAXone 1,000 MG in 0.9 % Sodium Chloride 10 ML IVP SCH (13:21)
[2021-11-19 14:51] LABS: Adenovirus Not Detected (Not Detect); Bordetella Pertussis Not Detected (Not Detect); Chlamydophila pneumoniae Not Detected (Not Detect); Coronavirus 229E Not Detected (Not Detect); Coronavirus HKU1 Not Detected (Not Detect); Coronavirus NL63 Not Detected (Not Detect); Coronavirus OC43 Not Detected (Not Detect); Human Metapneumovirus Not Detected (Not Detect); Human Rhinovirus/Enterovirus Not Detected (Not Detect); Influenza A Subtype 2009 H1 Not Detected (Not Detect); Influenza B Not Detected (Not Detect); Mycoplasma pneumoniae Not Detected (Not Detect); Parainfluenza Virus 1 Not Detected (Not Detect); Parainfluenza Virus 2 Not Detected (Not Detect); Parainfluenza Virus 3 Not Detected (Not Detect); Parainfluenza Virus 4 Not Detected (Not Detect); Respiratory Syncytial Virus Not Detected (Not Detect); SARS-CoV-2 Not Detected (Not Detect)
[2021-11-19] MEDS ORDERED: Sucralfate 1 GM TABLET PO SCH (16:30)
[2021-11-19 18:23] VITALS: BP 114/53; PULSE 89; TEMP 99.1; O2SAT 96
== END 2021-11-19 19:55 ==
LOC: EMEROOARM 12:08 → 2ANU 12:08 → SUATTDRO 16:53 → 2ANU 19:01
PROVIDERS: ADMIT Internal Medicine; ATTEND Pharmacist